=== PATIENT | female | born 1975 | race Caucasian/White ===

== ENCOUNTER 2019-12-06 12:19 | Outpatient (CLI) | payer BC, OTHER ==
--- NOTE | 2019-12-06 14:24 | MRI ---
MRI Cervical spine without contrast: HISTORY: Neck pain. Numbness in bilateral hands and legs. Constant back pain. COMPARISON: None FINDINGS: There is motion present on all pulse sequences which does mildly degrade image quality. The craniocervical junction is unremarkable. No significant cord signal abnormality. Paravertebral soft tissues have a normal appearance and normal signal intensity. Normal signal intensity is demonstrated in the bone marrow. C1-2:No significant stenosis. C2-3: There is no disc bulge or disc herniation. The central spinal canal and neural foramina are pat ent. C3-4: There is no disc bulge or disc herniation. The central spinal canal and neural foramina are pat ent. C4-5: Significant motion at this level, but no definite disc herniation or disc bulge is visualized. The central spinal canal and neural foramina do appear patent. C5-6: There is a disc osteophyte complex present at this level. There is significant motion artifact on axial imaging which limits adequate evaluation, but there is question of an associated left paracentral disc protrusion with mild to moderate left-sided neural foraminal narrowing. There is mil d effacement of the ventral subarachnoid space. The right neural foramen is patent. C6-7: There is no disc bulge disc herniation. The central spinal canal and neural foramina are patent . C7-T1: There is no disc bulge or disc herniation. The central spinal canal and neural foramina are pa tent. IMPRESSION: Limited examination due to motion artifact, but mild disc degenerative changes are seen at the C4-5 a nd to a greater extent C5-6 levels. Although there is motion artifact, there is suggested left neural foraminal narrowing at the C5-6 level. The degree of narrowing is difficult to adequately asse ss but does appear to be [id number] in severity.
--- NOTE | 2019-12-06 14:40 | MRI ---
LUMBAR SPINE MRI WITHOUT IV CONTRAST: 12/06/19 HISTORY: Low back pain, numbness in both hands and legs. FINDINGS: Scattered ligament and facet hypertrophic changes and some disc desiccation changes. Conus medullaris region extends down to the L1-2 disc level. No evidence for abnormal marrow signal. T12-L1 disc: Unremarkable. L-2 disc: Unremarkable. L2-3 disc: Unremarkable. L3-4 disc: Slight disc bulging and desiccation change with minimal indention of the ventral thecal sa c and mild lateral recess stenosis. L4-5 disc: Mild lateral recess stenosis. L5-S1 disc: Unremarkable. IMPRESSION: No high grade stenosis. Desiccation changes particularly at L3-4 and L4-5 with some mild central dara l and lateral recess stenotic changes as above. POS: [id number]
== END 2019-12-06 12:20 | disposition home or self-care (01) ==
LOC: SCSMRI 12:19
PROVIDERS: ATTEND Physical Medicine & Rehabilitation
DX: M54.5 Low back pain (principal); M54.2 Cervicalgia; M79.621 Pain in right upper arm; M47.812 Spondylosis without myelopathy or radiculopathy, cervical region; M48.02 Spinal stenosis, cervical region; M48.061 Spinal stenosis, lumbar region without neurogenic claudication; M53.86 Other specified dorsopathies, lumbar region
CPT/HCPCS: 72141; 72148